=== PATIENT | female | born 1990 | race Caucasian/White ===

== ENCOUNTER 2018-08-15 09:19 | Outpatient (CLI) | payer BC ==
--- NOTE | 2018-08-15 10:29 | ULT ---
EXAM: OB ultrasound COMPARISON: None HISTORY: female. Evaluate size, dates, and anatomy. TECHNIQUE: Multiplanar grayscale and color Doppler transabdominal sonographic images are obtained. FINDINGS: There is a single intrauterine gestation in cephalic presentation. Cardiac Doppler demonstr ates heart tones with a heart rate of 134 beats per minute. The placenta is located anteriorly without evidence of placenta previa. There is a normal amount of amniotic fluid with an am niotic fluid index of 10.51 centimeters. The cervical length based on transabdominal imaging measures 7.6 centimeters. biometry measurements: BPD 4.83 cm -- 20 weeks 5 days HC 18.27 cm -- 20 weeks 5 days AC 15.66 cm -- 20 weeks 6 days FL 3.4 cm -- 20 weeks 5 days The estimated gestational age by ultrasound is 20 weeks 6 days with an ANTHONY on12/27/2018. Gestational a ge by the last menstrual period is 19 weeks 4 days. The estimated weight by ultrasound is 374 g (13 ounces). This represents 96 percentile for feta l weight. A 4 chambered heart is visualized. The cerebellum, visualized portions of the spine, kidneys, u rinary bladder, and cord insertion demonstrate a normal sonographic appearance. Three-vessel cord is not well delineated on this exam. No anomalies are seen. IMPRESSION: 1. Single intrauterine gestation in cephalic presentation with heart tones documented. Estimat ed gestational age by ultrasound is 20 weeks 6 days. 2. Estimated weight is 374 g per and series 13 ounces). 3. Amniotic fluid index is 10.51 centimeters.
== END 2018-08-15 09:20 | disposition home or self-care (01) ==
LOC: BICULT 09:19
PROVIDERS: ATTEND Family Medicine
DX: Z34.82 Encounter for supervision of other normal pregnancy, second trimester (principal); Z3A.20 20 weeks gestation of pregnancy
CPT/HCPCS: 76805

== ENCOUNTER 2018-12-03 18:24 | Day surgery (SDC) | payer BC ==
[2018-12-03 18:45] VITALS: BMI 28.5
[2018-12-03] MEDS ORDERED: hydrALAZINE 20 MG/ML VIAL SLOW IVP PRN (19:34)
--- NOTE | 2018-12-03 20:32 | ULT ---
ULTRASOUND OBSTETRICAL COMPLETE: DATE: 12/03/2018 HISTORY: 28-year-old female in third trimester of status post fall. FINDINGS: number: clay lie: Cephalic Maternal cervix: 3 cm. Closed. Placenta: Anterior. No evidence of abruption or previa. Amniotic fluid volume: ACOSTA = 12cm heart rate: 130 bpm anatomy not evaluated. biometry: Not measured IMPRESSION: 1) Live 3rd trimester intrauterine gestation. 2) no gross evidence of acute, traumatic injury. 3) cephalic lie.
--- NOTE | 2018-12-04 07:59 | SS ---
DATE OF ADMISSION: 12/03/2018 DATE OF DISCHARGE: 12/03/2018 REGULAR PHYSICIAN: Rodri Bentley MD EVALUATING PHYSICIAN: Saud Vega MD CHIEF COMPLAINT: Status post fall at work. HISTORY OF PRESENT ILLNESS: Ms. Gastelum is a 28-year-old white, G2, P0, estimated date of confinement 01/05/2019, who presents after having had a fall at work. She states that she fell at work and fell on both her hands and knees. She denies direct abdominal contact. She denies vaginal bleeding or loss of fluid since that time. Her baby has been active since that time. Her care has been with Dr. Bentley and has been reportedly uncomplicated. PAST OBSTETRICAL HISTORY: Includes one miscarriage in the first trimester, which did not require a D and C. PAST MEDICAL HISTORY: Depression. PAST SURGICAL HISTORY: Hernia repair as a . CURRENT MEDICATIONS: 1. vitamins. 2. Zoloft 25 mg daily. ALLERGIES: NO KNOWN ALLERGIES. SOCIAL HISTORY: Denies tobacco, alcohol, or drug use. FAMILY HISTORY: Unremarkable. REVIEW OF SYSTEMS: Denies nausea, vomiting, abdominal pain, ruptured membranes, or vaginal bleeding. PHYSICAL EXAMINATION: VITAL SIGNS: In triage, her vital signs are stable and she is afebrile. GENERAL: She is very pleasant and in no acute distress. ABDOMEN: Soft, nontender, and gravid. heart rate tracing is reassuring with spontaneous accelerations. Initially, there were mild contractions, which the patient did not feel, but after oral hydration, these essentially resolved. Ultrasound shows a cephalic infant with the cervix closed with a length of 3 cm. There is no evidence of abruption or placenta previa. ACOSTA is 12. The patient is observed in Labor and Delivery on monitor over the 4 hours after her fall at 5:00 p.m. ASSESSMENT: 1. 35 and 2/7th-week intrauterine . 2. Status post fall at work. PLAN: The patient will be discharged from Labor and Delivery and will be evaluated in the emergency room for her complaints of knee pain. Job ID: [id number]
== END 2018-12-03 21:39 | disposition home or self-care (01) ==
LOC: L&D/OP 18:24
PROVIDERS: ATTEND Family Medicine
DX: O99.89 Other specified diseases and conditions complicating pregnancy, childbirth and the puerperium (principal); M25.569 Pain in unspecified knee; O99.343 Other mental disorders complicating pregnancy, third trimester; F32.9 Major depressive disorder, single episode, unspecified; Z3A.35 35 weeks gestation of pregnancy; Z79.899 Other long term (current) drug therapy; Z91.81 History of falling
CPT/HCPCS: 76815

== ENCOUNTER 2018-12-03 21:46 | Emergency (ER) | payer BC, OTHER | END 2018-12-03 23:45 | disposition home or self-care (01) | LOC: ERS 21:46 | DX: O9A.213 Injury, poisoning and certain other consequences of external causes complicating pregnancy, third trimester (principal); S83.92XA Sprain of unspecified site of left knee, initial encounter; S80.211A Abrasion, right knee, initial encounter; O99.343 Other mental disorders complicating pregnancy, third trimester; F41.9 Anxiety disorder, unspecified; F32.9 Major depressive disorder, single episode, unspecified; Z79.899 Other long term (current) drug therapy; W19.XXXA Unspecified fall, initial encounter; Z3A.35 35 weeks gestation of pregnancy; Y99.0 Civilian activity done for income or pay | CPT/HCPCS: 99283 ==

== ENCOUNTER 2018-12-10 06:19 | Inpatient (IN) | payer BC ==
[2018-12-10 07:10] VITALS: BMI 29.0
[2018-12-10] MEDS ORDERED: hydrALAZINE 20 MG/ML VIAL SLOW IVP PRN ×3 (07:41→18:12)
[2018-12-10 08:15] LABS: ALT (SGPT) 9 U/L (8-55); AST (SGOT) 18 U/L (5-34); Alkaline Phosphatase 342 U/L (40-150); Anion Gap 10 mmol/L (10-20); BUN (Urea Nitrogen) 15 mg/dL (7.0-18.7); Bilirubin, Total 0.4 mg/dL (0.2-1.2); Calc. Creatinine Clearance 78 mL/min (70-130); Calcium 8.9 mg/dL (7.8-10.44); Carbon Dioxide 19 mmol/L (22-29); Chloride 107 mmol/L (98-107); Estimated GFR-MDRD 56; Globulin 3.2 g/dL (2.4-3.5); Glucose 73 mg/dL (70-105); Potassium 4.1 mmol/L (3.5-5.1); Protein, Total 6.2 g/dL (6.0-8.3); Sodium 132 mmol/L (136-145)
[2018-12-10 08:17] LABS: #Basophils 0.1 thou/uL (0.0-0.2); #Eosinphils 0.1 thou/uL (0.0-0.7); #Lymphocytes 1.3 thou/uL (1.20-3.40); #Monocytes 0.7 thou/uL (0.11-0.59); #Neutrophils 4.3 thou/uL (1.40-6.50); %Basophils 1.3 % (0.0-1.0); %Eosinophils 0.8 % (0.0-10.0); %Lymphocytes 20.3 % (21.0-51.0); %Monocytes 10.6 % (0.0-10.0); %Neutrophils 66.9 % (42.0-75.0); Hemoglobin 10.4 g/dL (12.0-16.0); MDiff Complete? YES; Mean Corpuscular HGB CONC 34.5 g/dL (32.0-36.0); Mean Corpuscular Hemoglobin 27.7 pg (27.0-31.0); Mean Corpuscular Volume 80.2 fL (78.0-98.0); Mean Platelet Volume 11.8 fL (7.4-10.4); Platelet Count 92 thou/uL (130-400); Platelet Morphology Comment Appears Decreased; Polychromasia SLIGHT = 2-3 cells (100X) (0-2/hpf); RBC Distribution Width 13.4 % (11.5-14.5); Red Blood Cell (RBC) Count 3.77 mill/uL (4.20-5.40); White Blood Cell (WBC) Count 6.4 thou/uL (4.8-10.8)
[2018-12-10 08:34] LABS: Amnisure Internal Control QC ACCEPTABLE (ACCEPTABLE)
[2018-12-10 08:35] LABS: Amnisure Test RUPTURE DETECTED (No Rupture)
[2018-12-10 08:44] LABS: Creatinine, Urine Less than 20.00 mg/dL (47-110); Protein, Urine Random Quant 29 mg/dL (1-14)
[2018-12-10] MEDS ORDERED: NS w/ Oxytocin 10 units 500 ML IV SCH ×2 (10:15)
[2018-12-10] MEDS ORDERED: Ondansetron PF 4 MG/2 ML Vial IVP PRN ×3 (10:15→18:12)
[2018-12-10] MEDS ORDERED: HYDROcodone/Acetaminophen 5/325 mg Tablet PO PRN ×3 (10:15→18:12)
[2018-12-10] MEDS ORDERED: Ibuprofen 800 MG TAB PO PRN (10:15)
[2018-12-10] MEDS ORDERED: NS / Oxytocin 40 units/1000ml 1,000 ML IV PRN (10:15)
[2018-12-10] MEDS ORDERED: NS / Oxytocin 40 units/1000ml 1,000 ML ONE (10:15)
[2018-12-10] MEDS ORDERED: Lidocaine 1% (PF) 30 ML VIAL SC PRN (10:15)
[2018-12-10] MEDS ORDERED: NS w/ Oxytocin 10 units 500 ML ONE (10:15)
[2018-12-10] MEDS ORDERED: Misoprostol 200 MCG TAB PR PRN (10:15)
[2018-12-10] MEDS ORDERED: Promethazine HCl 25 MG/ML VIAL IM PRN ×3 (10:15→18:12)
[2018-12-10] MEDS ORDERED: Diphenoxylate HCl/Atropine Tablet PO PRN (10:15)
[2018-12-10] MEDS ORDERED: Butorphanol Tartrate 1 MG/ML VIAL SLOW IVP PRN (10:15)
[2018-12-10] MEDS ORDERED: Carboprost 250 MCG/ML AMP IM PRN (10:15)
[2018-12-10] MEDS ORDERED: Lidocaine 1% (PF) 30 ML VIAL ONE (10:55)
[2018-12-10] MEDS: Lactated Ringer's 1,000 ML IV SCH ×2 (11:10→15:20)
[2018-12-10] MEDS: Ampicillin 2 GM in Sodium Chloride 0.9% 100 ML IVPB SCH (11:22)
[2018-12-10] MEDS ORDERED: Fentanyl 4 mcg/Bup 0.1% Cadd 100 ML ONE (12:05)
[2018-12-10] MEDS ORDERED: diphenhydrAMINE 50 MG/ML VIAL IVP PRN (12:50)
[2018-12-10] MEDS ORDERED: Acetaminophen 325 MG TAB PO PRN (12:50)
[2018-12-10] MEDS ORDERED: ePHEDrine/0.9% NaCl/PF SYRINGE 50 mg/10 ml SLOW IVP PRN (12:50)
[2018-12-10] MEDS ORDERED: Lactated Ringer's 500 ML IV PRN (12:50)
[2018-12-10] MEDS ORDERED: Naloxone HCl 0.4 mg/ml Vial IVP PRN ×2 (12:50)
[2018-12-10] MEDS ORDERED: Communication Order-Pharmacy FS SCH (13:00)
[2018-12-10] MEDS ORDERED: Fentanyl 4 mcg/Bupivacaine 0.1% Cassette 100 ML EPIDURAL SCH (13:00)
[2018-12-10] MEDS ORDERED: Bupivacaine/Epinephrine 0.25% 30 ML VIAL ONE (15:00)
[2018-12-10] MEDS ORDERED: Milk Of Magnesia 30 ML UDCUP PO PRN (18:12)
[2018-12-10] MEDS ORDERED: Lanolin Ointment 7 GM TUBE TOP PRN (18:12)
[2018-12-10] MEDS ORDERED: diphenhydrAMINE 25 MG CAP PO PRN (18:12)
[2018-12-10] MEDS ORDERED: Benzocaine-Menthol 82.5 ML CAN TOP PRN (18:12)
[2018-12-10] MEDS ORDERED: Preparation H Ointment 28 GM TUBE PR PRN (18:12)
[2018-12-10] MEDS ORDERED: Bisacodyl 10 MG SUPP PR PRN (18:12)
[2018-12-10] MEDS ORDERED: NS / Oxytocin 40 units/1000ml 1,000 ML IV SCH (18:12)
[2018-12-10] MEDS ORDERED: Adacel (T-DAP) 0.5 ML SYRINGE IM ONE (18:12)
[2018-12-10] MEDS: Ibuprofen 800 MG TAB PO SCH (20:44)
[2018-12-10] MEDS: Docusate Calcium (SURFAK) 240 MG CAP PO SCH (20:44)
[2018-12-10] MEDS ORDERED: cloNIDine 0.1 MG TAB PO PRN (21:57)
[2018-12-10] MEDS: Ferrous Sulfate 325 MG TAB PO SCH (22:37)
[2018-12-11] MEDS: Ibuprofen 800 MG TAB PO SCH ×3 (05:38→21:57)
[2018-12-11 05:57] LABS: Hemoglobin 7.6 g/dL (12.0-16.0); Mean Corpuscular Hemoglobin 28.2 pg (27.0-31.0); Mean Corpuscular Volume 82.9 fL (78.0-98.0); Mean Platelet Volume 11.6 fL (7.4-10.4); Platelet Count 89 thou/uL (130-400); RBC Distribution Width 13.3 % (11.5-14.5); Red Blood Cell (RBC) Count 2.68 mill/uL (4.20-5.40); White Blood Cell (WBC) Count 9.2 thou/uL (4.8-10.8)
[2018-12-11] MEDS: Prenatal Vitamin 1 TAB PO SCH (08:01)
[2018-12-11] MEDS: Ferrous Sulfate 325 MG TAB PO SCH ×2 (08:01→18:48)
[2018-12-11] MEDS: Docusate Calcium (SURFAK) 240 MG CAP PO SCH ×2 (08:02→20:59)
[2018-12-11] MEDS: Ampicillin 2 GM in Sodium Chloride 0.9% 100 ML IVPB SCH (09:01)
[2018-12-12] MEDS: Ibuprofen 800 MG TAB PO SCH ×3 (05:44→21:03)
[2018-12-12] MEDS: Prenatal Vitamin 1 TAB PO SCH (09:54)
[2018-12-12] MEDS: Docusate Calcium (SURFAK) 240 MG CAP PO SCH ×2 (09:54→21:03)
[2018-12-12] MEDS: Ferrous Sulfate 325 MG TAB PO SCH ×2 (09:55→18:36)
[2018-12-13] MEDS: Ibuprofen 800 MG TAB PO SCH ×2 (06:13→14:33)
[2018-12-13] MEDS: Prenatal Vitamin 1 TAB PO SCH (09:35)
[2018-12-13] MEDS: Docusate Calcium (SURFAK) 240 MG CAP PO SCH (09:35)
[2018-12-13] MEDS: Ferrous Sulfate 325 MG TAB PO SCH (09:35)
[2018-12-13 10:10] VITALS: BP 126/76; TEMP 98
== END 2018-12-13 14:53 | disposition home or self-care (01) | DRG 807 ==
LOC: L&D/OP 06:19 → L&D 09:28 → 3SW 18:36
PROVIDERS: ADMIT Family Medicine; ATTEND Family Medicine
PROC: 10E0XZZ Delivery of Products of Conception, External Approach (ICD-10-PCS; principal; 2018-12-10)
PROC: 0W8NXZZ Division of Female Perineum, External Approach (ICD-10-PCS; 2018-12-10)
DX: O42.02 Full-term premature rupture of membranes, onset of labor within 24 hours of rupture (principal); Z37.0 Single live birth; O99.344 Other mental disorders complicating childbirth; F32.9 Major depressive disorder, single episode, unspecified; O24.420 Gestational diabetes mellitus in childbirth, diet controlled; O69.81X0 Labor and delivery complicated by cord around neck, without compression, not applicable or unspecified; Z3A.36 36 weeks gestation of pregnancy
CPT/HCPCS: 36415; 36416; 51702; 80053; 82570; 84112; 84156; 85025; 85027; 86850; 86900; 86901; 88307; 90715; 99285; J0290; J2001; J2590; J3490